=== PATIENT | male | born 1940 | race Native Hawaiian/Other Pacific Islander ===

== ENCOUNTER 2017-03-02 08:58 | Outpatient (CLI) | payer OTHER, BC ==
[2017-03-02 09:26] LABS: PLATELET COUNT 197 K/uL (142-355)
[2017-03-02 09:42] LABS: POTASSIUM 3.8 mmol/L (3.6-5.2)
== END 2017-03-02 19:05 | disposition home or self-care (01) ==
LOC: LABW 08:58
PROVIDERS: Otolaryngology Otolaryngology/Facial Plastic Surgery
DX: E03.8 Other specified hypothyroidism (principal); R06.02 Shortness of breath
CPT/HCPCS: 36415; 80053; 80061; 81000; 84439; 84443; 85027

== ENCOUNTER 2018-03-23 11:41 | Outpatient (CLI) | payer OTHER, BC ==
[2018-03-23 12:05] LABS: PLATELET COUNT 200 K/uL (142-355)
[2018-03-23 14:23] LABS: POTASSIUM 4.5 mmol/L (3.6-5.2)
== END 2018-03-23 19:39 | disposition home or self-care (01) ==
LOC: LABW 11:41
PROVIDERS: Internal Medicine
DX: E78.00 Pure hypercholesterolemia, unspecified (principal); E03.8 Other specified hypothyroidism; E55.9 Vitamin D deficiency, unspecified
CPT/HCPCS: 36415; 80053; 80061; 81000; 82306; 82607; 83090; 84439; 84443; 85027

== ENCOUNTER 2018-09-05 15:16 | Outpatient (CLI) | payer OTHER, BC | END 2018-09-05 22:42 | disposition home or self-care (01) | LOC: RAD 15:16 | DX: J44.1 Chronic obstructive pulmonary disease with (acute) exacerbation (principal) ==

== ENCOUNTER 2018-09-11 12:42 | Emergency (ER) | payer OTHER, BC ==
[~2018-09-11] VITALS: Ht 160 cm; Wt 59.4 kg
[2018-09-11] MEDS ORDERED: SIMV10TA PO (13:33)
[2018-09-11] MEDS ORDERED: TAMSULOSIN0.4 MG PO (13:33)
[2018-09-11] MEDS ORDERED: FAMOTIDINE40 MG PO (13:33)
[2018-09-11] MEDS ORDERED: MEMA10TA2 PO (13:34)
[2018-09-11] MEDS ORDERED: OMEP40CA PO (13:34)
[2018-09-11] MEDS ORDERED: CEFUROXIME500 MG PO (13:35)
[2018-09-11] MEDS ORDERED: TIROSINT112 MCG PO (13:35)
[2018-09-11] MEDS ORDERED: PRED5TAB3 PO (13:37)
[2018-09-11] MEDS ORDERED: DONE5TAB PO (13:38)
[2018-09-11 14:00] LABS: PLATELET COUNT 236 K/uL (142-355)
[2018-09-11 14:09] LABS: POTASSIUM 3.5 mmol/L (3.6-5.2)
[2018-09-11 17:17] VITALS: TEMP 97.1
[2018-09-11 18:30] VITALS: BP 121/70
== END 2018-09-11 18:35 | disposition home or self-care (01) ==
LOC: ED 12:42
PROVIDERS: Family Medicine
DX: J44.1 Chronic obstructive pulmonary disease with (acute) exacerbation (principal)
CPT/HCPCS: 36415; 80053; 81000; 85027; 87502; 94664; 96360; 96375; 99284; J2930

== ENCOUNTER 2019-10-31 11:17 | Outpatient (CLI) | payer OTHER, BC ==
[~2019-10-31 11:17] MED LIST: CEFUROXIME500 MG PO; DONE5TAB PO; FAMOTIDINE40 MG PO; MEMA10TA2 PO; OMEP40CA PO; PRED5TAB3 PO; SIMV10TA PO; TAMSULOSIN0.4 MG PO; TIROSINT112 MCG PO
[2019-10-31 11:36] LABS: PLATELET COUNT 162 K/uL (142-355)
[2019-10-31 11:57] LABS: POTASSIUM 3.9 mmol/L (3.6-5.2)
== END 2019-10-31 20:26 | disposition home or self-care (01) ==
LOC: LABW 11:17
PROVIDERS: Internal Medicine
DX: Z00.00 Encounter for general adult medical examination without abnormal findings (principal); Z13.6 Encounter for screening for cardiovascular disorders; E03.8 Other specified hypothyroidism; Z12.5 Encounter for screening for malignant neoplasm of prostate; N40.0 Benign prostatic hyperplasia without lower urinary tract symptoms; Z12.11 Encounter for screening for malignant neoplasm of colon; Z87.891 Personal history of nicotine dependence
CPT/HCPCS: 36415; 80053; 80061; 81000; 84153; 84439; 84443; 85027

== ENCOUNTER 2020-02-20 11:20 | Outpatient (CLI) | payer OTHER, BC ==
[2020-02-20 13:02] LABS: PLATELET COUNT 215 K/uL (142-355)
== END 2020-02-20 21:52 | disposition home or self-care (01) ==
LOC: LAB 11:20
PROVIDERS: Internal Medicine
DX: F03.90 Unspecified dementia, unspecified severity, without behavioral disturbance, psychotic disturbance, mood disturbance, and anxiety (principal); E03.8 Other specified hypothyroidism; D64.9 Anemia, unspecified
CPT/HCPCS: 36415; 80053; 83540; 84439; 84443; 85027

== ENCOUNTER 2020-07-25 11:20 | Outpatient (CLI) | payer OTHER, BC ==
[2020-07-25 12:19] LABS: PLATELET COUNT 196 K/uL (142-355)
[2020-07-25 12:42] LABS: POTASSIUM 4.2 mmol/L (3.6-5.2)
== END 2020-07-25 19:11 | disposition home or self-care (01) ==
LOC: LABW 11:20
PROVIDERS: Internal Medicine
DX: F03.90 Unspecified dementia, unspecified severity, without behavioral disturbance, psychotic disturbance, mood disturbance, and anxiety (principal); E03.8 Other specified hypothyroidism
CPT/HCPCS: 36415; 80053; 80061; 81000; 84439; 84443; 85027

== ENCOUNTER 2021-02-19 15:38 | Emergency (ER) | payer BC ==
[~2021-02-19] VITALS: Ht 160 cm; Wt 596.0 kg
[2021-02-19 15:49] VITALS: TEMP 97.4
[2021-02-19 16:46] LABS: PLATELET COUNT 199 K/uL (142-355)
[2021-02-19 16:55] LABS: POTASSIUM 4.1 mmol/L (3.6-5.2)
[2021-02-19 19:35] VITALS: BP 135/60
== END 2021-02-19 19:35 | disposition home or self-care (01) ==
LOC: ED 15:38
PROVIDERS: Family Medicine
DX: E86.0 Dehydration (principal)
CPT/HCPCS: 36415; 80053; 81000; 85027; 96360; 99284

== ENCOUNTER 2021-09-02 09:34 | Outpatient (CLI) | payer BC ==
[2021-09-02 10:27] LABS: PLATELET COUNT 214 K/uL (142-355)
[2021-09-02 10:29] LABS: POTASSIUM 3.6 mmol/L (3.6-5.2)
== END 2021-09-02 20:14 | disposition home or self-care (01) ==
LOC: LABW 09:34
PROVIDERS: ATTEND Internal Medicine
DX: F03.90 Unspecified dementia, unspecified severity, without behavioral disturbance, psychotic disturbance, mood disturbance, and anxiety (principal); E03.8 Other specified hypothyroidism
CPT/HCPCS: 36415; 80053; 80061; 84439; 84443; 85027

== ENCOUNTER 2021-09-29 15:47 | Emergency (ER) | payer BC ==
[~2021-09-29] VITALS: Ht 160 cm; Wt 59.4 kg
[2021-09-29 16:04] VITALS: BP 129/62; TEMP 97.9
[2021-09-29 16:25] LABS: PLATELET COUNT 202 K/uL (142-355)
[2021-09-29 16:37] LABS: POTASSIUM 3.9 mmol/L (3.6-5.2)
[2021-09-30] MEDS ORDERED: QUETIAPINE25 MG PO (08:38)
[2021-09-30] MEDS ORDERED: MEMANTINE HYDRO10 MG PO (08:39)
[2021-09-30] MEDS ORDERED: WIXELA INHUB 251 AER INH (08:45)
== END 2021-09-29 17:00 | disposition still patient (30) ==
LOC: ED 15:47
PROVIDERS: Hospitalist
DX: F03.91 Unspecified dementia, unspecified severity, with behavioral disturbance (principal); F25.8 Other schizoaffective disorders; Z11.52 Encounter for screening for COVID-19; Z04.6 Encounter for general psychiatric examination, requested by authority
CPT/HCPCS: 80053; 81000; 85027; 87635; 93005; 99283; U0003

== ENCOUNTER 2021-09-30 09:19 | Emergency (ER) | payer BC ==
[~2021-09-30] VITALS: Ht 162.6 cm; Wt 47.6 kg
[~2021-09-30 09:19] MED LIST changes: +MEMANTINE HYDRO10 MG PO; +QUETIAPINE25 MG PO; +WIXELA INHUB 251 AER INH
[2021-09-30 09:20] VITALS: TEMP 98
[2021-09-30 11:36] LABS: PLATELET COUNT 196 K/uL (142-355)
[2021-09-30 11:42] LABS: POTASSIUM 4.4 mmol/L (3.6-5.2)
[2021-09-30 15:00] VITALS: BP 106/43
== END 2021-09-30 15:12 | disposition short-term general hospital (02) ==
LOC: ED 09:19
PROVIDERS: Emergency Medicine
DX: S42.392A Other fracture of shaft of left humerus, initial encounter for closed fracture (principal); W18.39XA Other fall on same level, initial encounter; Y92.238 Other place in hospital as the place of occurrence of the external cause
CPT/HCPCS: 36415; 80053; 85027; 96374; 99284; J2270

== ENCOUNTER 2021-10-01 04:18 | Emergency (ER) | payer BC ==
[~2021-10-01] VITALS: Ht 162.6 cm; Wt 47.6 kg
[2021-10-01 05:00] LABS: PLATELET COUNT 174 K/uL (142-355)
[2021-10-01 05:09] LABS: POTASSIUM 3.8 mmol/L (3.6-5.2)
[2021-10-01 06:07] VITALS: BP 146/75; TEMP 98.1
== END 2021-10-01 06:07 | disposition still patient (30) ==
LOC: ED 04:18
PROVIDERS: Emergency Medicine
DX: R46.89 Other symptoms and signs involving appearance and behavior (principal); R00.0 Tachycardia, unspecified; Z11.52 Encounter for screening for COVID-19; Z04.6 Encounter for general psychiatric examination, requested by authority
CPT/HCPCS: 36415; 80053; 85027; 87635; 93005; 99285; U0003

== ENCOUNTER 2021-10-05 09:32 | Emergency (ER) | payer BC ==
[~2021-10-05] VITALS: Ht 162.6 cm; Wt 46.7 kg
[2021-10-05 10:21] VITALS: BP 155/62; TEMP 98.9
== END 2021-10-05 10:21 | disposition home or self-care (01) ==
LOC: ED 09:37
DX: S42.392D Other fracture of shaft of left humerus, subsequent encounter for fracture with routine healing (principal); W18.39XD Other fall on same level, subsequent encounter; Y92.238 Other place in hospital as the place of occurrence of the external cause
CPT/HCPCS: 99282

== ENCOUNTER 2021-10-10 17:45 | Emergency (ER) | payer BC ==
[~2021-10-10] VITALS: Ht 162.6 cm; Wt 46.3 kg
[2021-10-10] MEDS ORDERED: QUETIAPINE25 MG PO ×2 (18:19→18:20)
[2021-10-10] MEDS ORDERED: NAMENDA5 MG PR (18:22)
[2021-10-10] MEDS ORDERED: ESCITALOPRAM5 MG PO (18:23)
[2021-10-10] MEDS ORDERED: OLAN2.5T2 PO (18:29)
[2021-10-10 21:42] LABS: PLATELET COUNT 286 K/uL (142-355)
[2021-10-10 21:57] LABS: POTASSIUM 4.1 mmol/L (3.6-5.2)
[2021-10-11 04:52] VITALS: BP 142/64; TEMP 98.9
[2021-10-13] MEDS ORDERED: TAMS0.4C PO (14:32)
[2021-10-13] MEDS ORDERED: MORP2INJ IV (14:33)
[2021-10-13] MEDS ORDERED: SIMV10TA PO (14:33)
[2021-10-13] MEDS ORDERED: IPRATROPIUM/ INH (14:34)
[2021-10-13] MEDS ORDERED: LORA2INJ21 IM (14:34)
[2021-10-13] MEDS ORDERED: LEVO0.117 PO (14:34)
[2021-10-13] MEDS ORDERED: ACET-206 PO (14:36)
== END 2021-10-11 04:52 | disposition still patient (30) ==
LOC: ED 17:45
PROVIDERS: Family Medicine
PROC: 0T9B70Z Drainage of Bladder with Drainage Device, Via Natural or Artificial Opening (ICD-10-PCS; principal; 2021-10-10)
DX: J18.9 Pneumonia, unspecified organism (principal); I95.89 Other hypotension; N18.9 Chronic kidney disease, unspecified; Z20.822 Contact with and (suspected) exposure to COVID-19
CPT/HCPCS: 36415; 51702; 80053; 81000; 85027; 87635; 94664; 96360; 96361; 96365; 96375; 99284; J0696; J2930; U0003